=== PATIENT | female | born 1980 | race Caucasian/White ===

== ENCOUNTER 2024-10-04 15:11 | Outpatient (RCR) | payer BC, SELFPAY | END 2025-02-01 23:59 | disposition home or self-care (01) | PROVIDERS: Visit Provider Registered Nurse | DX: R42 Dizziness and giddiness (principal); Z51.89 Encounter for other specified aftercare | CPT/HCPCS: 97112; 97161 ==

== ENCOUNTER 2024-10-12 07:30 | Outpatient (CLI) | payer BC, SELFPAY | END 2024-10-12 07:31 | disposition home or self-care (01) | LOC: NFLDREF 10-15 22:24 | PROVIDERS: PCP Registered Nurse; Referring Provider Registered Nurse; Visit Provider Registered Nurse | DX: R73.01 Impaired fasting glucose (principal); Z13.6 Encounter for screening for cardiovascular disorders; Z13.9 Encounter for screening, unspecified | CPT/HCPCS: 80048; 80061 ==

== ENCOUNTER 2024-12-24 13:02 | Outpatient (CLI) | payer BC, SELFPAY | END 2024-12-24 13:03 | disposition home or self-care (01) | PROVIDERS: PCP Registered Nurse; Visit Provider Registered Nurse | DX: M79.604 Pain in right leg (principal); M79.605 Pain in left leg; M79.89 Other specified soft tissue disorders | CPT/HCPCS: 80048; 82550; 85379 ==

== ENCOUNTER 2025-01-14 10:03 | Outpatient (CLI) | payer BC, SELFPAY ==
--- NOTE | 2025-01-14 10:15 | CRLHL7_ITS ---
For Patients: As a result of the Century Cures Act, medical imaging exams and procedure reports are released immediately into your electronic medical record. You may view this report before your referring provider. If you have questions, please contact your health care provider. INDICATION: BILATERAL SCREENING MAMMOGRAM, ASYMPTOMATIC 44 Y/O FEMALE COMPARISON: NONE TECHNIQUE: Digital mammogram in CC and MLO projections including computer-aided detection (CAD) and tomosynthesis. BREAST COMPOSITION: There are scattered areas of fibroglandular density. FINDINGS: No suspicious findings. ASSESSMENT: BI-RADS 1 Negative RECOMMENDATION: Annual screening mammogram. A lay language report of this examination will be provided to the patient. Dictated by: Gregg Tucker MD @ 01/14/2025 10:41:13 (Electronically Signed)
== END 2025-01-14 10:04 | disposition home or self-care (01) ==
LOC: MAMMO 10:04
PROVIDERS: PCP Registered Nurse; Visit Provider Registered Nurse
DX: Z12.31 Encounter for screening mammogram for malignant neoplasm of breast (principal)
CPT/HCPCS: 77063; 77067

== ENCOUNTER 2025-02-14 15:23 | Outpatient (CLI) | payer BC, SELFPAY | END 2025-02-14 15:24 | disposition home or self-care (01) | LOC: NFLDREF 02-18 13:34 | PROVIDERS: PCP Nurse Practitioner Family; Referring Provider Nurse Practitioner Family | DX: R19.7 Diarrhea, unspecified (principal) | CPT/HCPCS: 87177; 87209; 87507 ==

== ENCOUNTER 2025-05-07 01:20 | Emergency (ER) | payer BC, SELFPAY ==
[2025-05-07 01:22] VITALS: BP 149/92; PULSE 128; RESP 18; TEMP 35.8; O2SAT 97; BMI 38.0
--- OUTSIDE RECORDS SUMMARY | 2025-05-07 01:23 | XMS_ITS | Data Portability ---
Author Organization [facility], [facility] Address [address] [place] [address] Care Team Providers Care Clinical Practitioner Name Role Phone KELI ELIZONDO Primary Care Provider Assessment No assessment recorded. Plan of Treatment Reminders Order Date Submit Date Provider Last Modified By Organization Details Last Modified Time Details Appointments None recorded. Lab None recorded. Referral None recorded. Procedures None recorded. Surgeries None recorded. Imaging barium swallow study 022 022 [email or web address] Not available 14:22:50 Medication Orders None recorded. Patient TargetsNo targets recorded. Patient InstructionsNo instructions recorded. Reason for Referral None Reported. Procedures Surgical History Date Name Laterality Status Provider Name and Address Organization Details Recorded Time 08/29/19 Fiberoptic Laryngoscopy (83724) completed Elle STEIN [facility] 08/29/2021 14:11:26 Imaging Results None recorded. Procedure Notes None recorded. Medical Equipment None Reported. Allergies Allergen ID Allergen Name Allergen Category Reaction Reaction Severity Criticality Documentation Date Start Date Code Code System Note Provider Name and Address Organization Details Recorded Time 10441 lamotrigi ne medicatio n Not available Not available Not available 08/29/2021 87023 RxNorm Loni hawkins [facility] 14:03:25 Medications Name Sig Start Date Stop Date Status Note LastModified by Organization Details LastModified Time cyclobenzapri ne 10 mg tablet TAKE 1 TABLET BY MOUTH EVERY EVENING NEEDED FOR BACK PAIN active Not Available Not Available No t Available prednisone 10 mg tablet active Not Available Not Available No t Available Carafate 100 mg/mL oral suspension active Not Available Not Available N ot Available metoprolol succinate ER 50 mg tablet,extend ed release 24 hr TAKE 1 TABLET BY MOUTH EVERY DAY active Not Available Not Available No t Available clonazepam 0.5 mg tablet TAKE 1 TABLET BY MOUTH DAILY AND ONE TABLET ONCE A DAY NEEDED active Not Available Not Available No t Available cyanocobalami n (vit B-12) 1,000 mcg tablet TAKE 1 TABLET BY MOUTH 3 TIMES A WEEK active Not Available Not Available No t Available modafinil 200 mg tablet TAKE 1 TABLET BY MOUTH TWICE DAILY active Not Available Not Available No t Available benzonatate 100 mg capsule TAKE 1 CAPSULE BY MOUTH THREE TIMES DAILY NEEDED FOR COUGH active Not Available Not Available No t Available cephalexin 500 mg capsule TAKE 1 CAPSULE BY MOUTH EVERY 12 HOURS WITH MEALS FOR 7 DAYS active Not Available Not Available No t Available bupropion HCl 75 mg tablet TAKE 1 TABLET BY MOUTH DAILY active Not Available Not Available No t Available omeprazole 20 mg capsule,delay ed release active Not Available Not Available N ot Available norethindrone acetate 1 mg-ethinyl estradiol 20 mcg tablet TAKE 1 TABLET BY MOUTH DAILY active Not Available Not Available No t Available escitalopram 10 mg tablet TAKE 1 AND 1/2 TABLETS BY MOUTH EVERY MORNING active Not Available Not Available No t Available aripiprazole 5 mg tablet TAKE 1 TABLET BY MOUTH DAILY active Not Available Not Available No t Available bupropion HCl XL 300 mg 24 hr tablet, extended release TAKE 1 TABLET BY MOUTH DAILY active Not Available Not Available No t Available bupropion HCl XL 150 mg 24 hr tablet, extended release TAKE 1 TABLET BY MOUTH EVERY MORNING active Not Available Not Available No t Available dalfampridine ER 10 mg tablet,extend ed release,12 hr TAKE 1 TABLET BY MOUTH TWICE DAILY. START ONCE DAILY FOR A WHILE AND INCREASE TO TWICE DAILY TOLERATED active Not Available Not Available No t Available Trintellix 5 mg tablet TAKE 1 TABLET BY MOUTH DAILY active Not Available Not Available No t Available Trintellix 10 mg tablet TAKE 1 TABLET BY MOUTH DAILY active Not Available Not Available No t Available Vitals Date Recorded Body height Body mass index (BMI) Body weight Provider Name and Address Organization Details Last Updated DateTime 08/29/2021 160.02 cm 39 kg/m2 39506.32 g Loni collins [facility] 08/29/2021 13:37:00 Social History None recorded. Functional Status None recorded. Mental Status None recorded. Family History Nothing Reported. Medical History Condition Response Allergies/Hayfever N Acid reflux (GERD) Y Heart Conditions N Liver Disease/Jaundice N Emphysema N Migraines N Thyroid Problems N Glaucoma N Depression N HIV/Sexually Transmitted Disease N Anemia N Heart Attack ([place]) N N Diabetes N Bleeding Disorder N Hearing Loss N Arthritis N Cancer N Stroke N Asthma N Sleep Disorder N Hypertension N Speech Delay N Kidney Disease N Gynecological HistoryNo gynecological history recorded. Obstetrics History GPAL:G 0 P 0 0 0 0 Past Encounters Encounter ID Performer Location Encounter Start Date Encounter Closed Date Diagnosis/Indication Diagnosis SNOMED-CT Code Diagnosis ICD10 Code Diagnosis IMO Codes Diagnosis Note [id number] Lissette Lee MD Main Office [address] [facility],[address] [place] [address] 08/29/2021 13:34:56 08/29/2021 14:23:14 Anxiety 74257589 F41.9 high anxiety pt-cont current regimen Dysphagia 76162253 R13.1 3 - Reassured there is no evidence of obstructin g masses or lesions in the upper aerodigest fortunato tract - Recommend further evaluation of cervical dysphagia with a barium swallow study. -Discussed the possibilit y of a GI consult for further evaluation of the patient s dysphagia - Pt. will F/U with me after the study to discuss results. Laryngopha ryngeal reflux 249817484 K21.9 -History provided today and endoscopic exam findings are consistent with reflux. Patient reassured no concerning pathology on todays endoscopic exam-revie wed lifestyle and dietary changes-Co nt omeprazole -FU after barium Health Concerns Section Related Observation LastModified by Organization Detai ls LastModified Time None Recorded Concern Status LastModified by Organization Details LastModified Time None Recorded Advance Directives Directive None Recorded Payers Insurance Date Sequence Insurance Name Policy Number Policy [place] Covered Member ID Murdock Member ID Guarantor Name 08/29/2021 1 MEDICAID-[place] - [facility] PRIOR TO 10/05/2022 - [facility] (MEDICAID) Renetta Marcum [id number] Renetta Marcum Notes Date Note Type Note Provider Name a nd Address Organization Details Recorded Time 2 text/html ROS as noted in the HPI 41 yo female presents for dysphagia x 6 months.Admits to feeling foods are getting caught in her throatStates she is able to take her finger and pull foods out to get it unstuck.Admits to globus sensation for the last 24 hours - feels there is osmething like a marble in her throat.Urgent care sent her here for eval. Negative strep at .States she is having trouble with bread, apples - all kinds of solid foods. States drinking is uncomforable but doens't get stuck.Admits to chronic throat clearing.+Odynophag ia.Denies hx of coughing.denies hemoptysis, unexplained weight loss.History of reflux - on omeprazole twice a dayHistory of Hiatal herniaAdmits to seasonal allergiesNever smoker. Lissette Lee MD [address] [place] [address] [address], [place], [address], [facility] 08/29/2021 15:32:08 OBGyn Episode No OBEpisode recorded.
--- OUTSIDE RECORDS SUMMARY | 2025-05-07 01:23 | XMS_ITS | Clinical Summary ---
Author Organization [facility] [employer] [facility] Address [address] [address] Phone Care Team Providers Care Apprentice Cosmetologist Name Role Phone Unavailable Primary Care Provider Unavailabl e Allergies Active Allergy Reactions Criticality Noted Date Comments Lamotrigine RASH Medium 01/09/2025 Medications albuterol HFA (Proair HFA, Ventolin HFA) 108 (90 Base) MCG/ACT inhalation aerosol INHALE 2 PUFFS EVERY 4 TO 6 HOURS NEEDED FOR SHORTNESS OF BREATH OR FOR WHEEZE 5 Active ocrelizumab (Ocrevus) 300 MG/10ML Solution Inject into the vein. Active cholecalciferol (Delta D3) 400 UNIT tablet Take 250 mcg by mouth one time a day. Active fluticasone propionate (Flonase) 50 MCG/ACT nasal spray Instill 2 Sprays nasally. 4 Active metFORMIN-XR (Glucophage-XR) 500 MG 24 hour tablet TAKE 1 TABLET BY MOUTH EVERFY EVENING FOR 7 DAYS, THEN INCREASE TO 2 TABS BY MOUTH EVERY EVENING 5 Active Active Problems No known active problems Social History Tobacco Use Types Packs/Day Years Used Date Smoking Tobacco: Never Smokeless Tobacco: Never Tobacco Cessation:Counseling Given: Not Answered Comments Unknown Sex and Gender Information Value Date Recorded Sex Assigned at Not on file Legal Sex Female 8:12 AM CDT Gender Identity Not on file Sexual Orientation Not on file Last Filed Vital Signs Vital Sign Reading Time Taken Comments Blood Pressure 129/83 01/09/2025 8:25 AM CDT Pulse 98 01/09/2025 8:25 AM CDT Temperature 36.5 C (97.7 F) 01/09/2025 8:25 AM CDT Respiratory Rate 14 01/09/2025 8:25 AM CDT Oxygen Saturation 98% 01/09/2025 8:25 AM CDT Inhaled Oxygen Concentration - - Weight - - Height - - Body Mass Index - - Plan of Treatment Health Maintenance Due Date Last Done Comments Cervical Cancer Screening 1981 Last pap w/ HPV Testing 1981 Last pap w/o HPV Testing 1981 Hepatitis B Vaccine (Standin g Order) (1 of 3 - 19+ 3-dose series) 02/26/2000 PERTUSSIS (Standing Order) 02/26/2000 TETANUS (Standing Order) 02/26/2000 MAMMO,SCREEN 09/06/2023 09/06/2022 COVID-19 Vaccine ( - 2024-2 6 season) 2025 Influenza Vaccine Seasonal (Standing Order) (#1) 2025 HPV Vaccine (Standing Order) Aged Out No longer eligible based on patient's age to complete this topic Pneumococcal/PCV20 Vaccine: Pediatrics (2-5 yrs) and At-Risk Patients (6-49 yrs) (Standing Order) Aged Out No longer eligible b ased on patient's age to complete this topic Insurance [address] [place] [id number] [employer] [address] [place] [address]
--- OUTSIDE RECORDS SUMMARY | 2025-05-07 01:23 | XMS_ITS | Clinical Summary ---
Author Organization [facility] Address [address] [place] [address] Care Team Providers Care Rehab Director Occupational Therapist Name Role Phone Unavailable Primary Care Provider Unavailabl e Allergies Active Allergy Reactions Criticality Noted Date Comments Lamotrigine Rash Medium 10/20/2023 Lamotrigine Rash Low 11/27/2024 Medications amphetamine-dex troamphetamine (ADDERALL XR) 15 MG 24 hr capsule Take 15 mg by mouth daily Active UNABLE TO FIND Inject 1 Dose into the vein every 6 months MEDICATION NAME: Ocrevus Active medroxyPROGESTE Kirt (PROVERA) 5 MG tabletIndicatio ns:Abnormal uterine bleeding (AUB) Take 1 tablet (5 mg) by mouth daily as needed (take for 5 days if heavy menstrual bleeding) 15 tablet 1 4 Active fluticasone (FLONASE) 50 MCG/ACT nasal sprayIndication s:Acute sinusitis with symptoms > 10 days [place] 2 sprays into both nostrils daily. 16 g 5 Active Active Problems No known active problems Social History Tobacco Use Types Packs/Day Years Used Date Smoking Tobacco: Never Smokeless Tobacco: Never Tobacco Cessation:Counseling Given: Not Answered Alcohol Use Standard Drinks/Week Comments Yes 0 (1 standard drink = 0.6 oz pur e alcohol) rarely Adolescent Education Answer Date Record ed Getting School Help Needed Not on file 10/21 Comments No Sex and Gender Information Value Date Recorded Sex Assigned at Not on file Legal Sex Female 12:46 PM CDT Gender Identity Not on file Sexual Orientation Not on file Last Filed Vital Signs Vital Sign Reading Time Taken Comments Blood Pressure 126/85 11/27/2024 7:20 PM CDT Pulse 96 11/27/2024 7:12 PM CDT Temperature 36.8 C (98.2 F) 11/27/2024 7:12 PM CDT Respiratory Rate 20 11/27/2024 7:12 PM CDT Oxygen Saturation 98% 11/27/2024 7:12 PM CDT Inhaled Oxygen Concentration - - Weight 98.4 kg (217 lb) 11/27/2024 7:12 PM CDT Height 160 cm (5' 3) 11/27/2024 7:12 PM CDT Body Mass Index 38.44 11/27/2024 7:12 PM CDT Plan of Treatment Health Maintenance Due Date Last Done Comments ADVANCE CARE PLANNING 1981 ANNUAL REVIEW OF HM ORDERS 1981 DIABETES SCREENING 1981 HIV SCREENING 02/26/1996 DTAP/TDAP/TD VACCINE (8 - Td or Tdap) 01/23/2020 01/22/2010, 03/15/1997, 10/30/1990, Additional history exists LIPID 2021 YEARLY PREVENTIVE VISIT 08/06/2022 08/06/19, 08/03/2020, 08/02/2019 PHQ-2 (once per calendar year) 2024 MAMMO SCREENING 09/06/2024 09/06/2022, 09/06/2022 COVID-19 VACCINE ( - season) 2025 09/15/2020, 08/17/2020 INFLUENZA VACCINE (#1) 2025 , 08/06/2021, 06/02/2021, Additional history exists PAP 10/22/2026 10/23/2023 ZOSTER VACCINE (1 of 2) 2031 HEPATITIS B VACCINE Completed 11/24/1996, 08/18/1996, 07/14/1996 MENINGITIS VACCINE Completed 02/06/2000 HEPATITIS C SCREENING Completed 08/20/2022, 021 HPV VACCINE (No Doses Required) Completed PNEUMOCOCCAL VACCINE: PEDIATRICS (0 to 5 YEARS) AND AT-RISK PATIENTS (6 to 49 YEARS) Aged Out No longer eligible based on patient's age to complete this topic Procedures Procedure Name Priority Date/Time Associated Diagnosis Comments GYNECOLOGIC CYTOLOGY Routine 10/23/2023 9:54 AM CDT Abnormal uterine bleeding (AUB) Menorrhagia Cervical cancer screening from Last 3 Months or Most Recently Relevant to Health Maintenance Results * Gynecologic Cytology (PAP) (10/23/2023 9:54 AM CDT) Interpretation Negative for Intraepithelial Lesion or Malignancy (NILM) 10/27/2023 1:47 PM CDT [facility] at 1347 CDT Comment Papanicolaou Test Limitations: Cervical cytology is a screening test with limited sensitivity, and regular screening is critical for cancer prevention. Pap tests are primarily effective for the diagnosis/prevent ion of squamous cell carcinoma, not adenocarcinoma or other cancers. 10/27/2023 1:47 PM CDT [facility] Specimen Adequacy Satisfactory for evaluation, endocervical/reyna sformation zone component present 10/27/2023 1:47 PM CDT [facility] LMP/Menopause Date 09/02/2023 10/27/2023 1:47 PM CDT [facility] Per[facility] Labs The technical component of this testing was completed at [facility] 10/27/2023 1:47 PM CDT [facility] Brushing ENDOCERVICAL STRUCTURE / Unknown 10/23/2023 9:54 AM CDT 10/24/2023 9:34 AM CDT us Basilia FRANCISCO - HORACIO AP Final Result [facility] [address] [facility] [address], [address] [address], [facility] [address] [facility] [address], [address] [place] [phone], [facility] from Last 3 Months or Most Recently Relevant to Health Maintenance Insurance [address] [place] [id number] [employer] OUT OF STATE [address] [place] [address] [employer] OUT [place]
--- OUTSIDE RECORDS SUMMARY | 2025-05-07 01:23 | XMS_ITS | Clinical Summary ---
Author Organization [facility] Address [address] [place] [address] Care Team Providers Care Sales Representative Publications Name Role Phone Yamileth Luo APRN, COLOR DEPOSITING MACHINE TENDER Unavailable [phone] Ann-Marie Hawkins MD Unavailable Unknown, Md VENCES Primary Care Provider UnavailMaría Candelaria MD Unavailable [phone] Allergies Active Allergy Reactions Criticality Noted Date Comments Adhesive Hives,Unknown 06/11/2016 Adhesive Tape-Silicones Rash High 10/09/2010 Other reaction(s): Other (See Comments) Other reaction(s): skin rash Other reaction(s): skin rash Lamotrigine Rash 03/15/2022 Latex Low 06/08/2024 when using condoms Nuts (Jerry) Anaphylaxis High 10/28/2023 Peanut Medium 12/04/2022 Other Reaction(s): *Unknown - Childhood Rxn Tree Nut Anaphylaxis High 01/16/2023 Tree Nuts Difficulty breathing,Swelling, lips/tongue 03/15/2022 Medications ocrelizumab (OCREVUS IV) by Intravenous route. Active fluticasone (FLONASE) 50 mcg/actuation nasal spray Instill 2 sprays into EACH nare ONCE DAILY. 16 g 1 4 Active amoxicillin-pot clavulanate (AUGMENTIN) 875-125 mg oral tablet 5 Active ACCU-CHEK GUIDE TEST STRIPS Strip testing strips CHECK BLOOD SUGAR IN THE MORNING 4 TIMES PER WEEK, AND NEEDED 5 Active ACCU-CHEK GUIDE ME GLUCOSE MTR meter CHECK BLOOD SUGAR IN THE MORNING 4 TIMES PER WEEK, AND NEEDED 5 Active ACCU-CHEK SOFTCLIX LANCETS CHECK BLOOD SUGAR IN THE MORNING 4 TIMES PER WEEK, AND NEEDED 5 Active metFORMIN ER (GLUCOPHAGE XR) 500 mg oral extended release tablet 24 HR TAKE 1 TABLET BY MOUTH EVERFY EVENING FOR 7 DAYS, THEN INCREASE TO 2 TABS BY MOUTH EVERY EVENING 5 Active cholecalciferol (VITAMIN D3) 400 unit (10 mcg) oral Tab tablet Take 25 tablets (250 mcg) by mouth once daily. Active nortriptyline (PAMELOR) 10 mg oral capsule Take 1 capsule qhs x2 weeks, then increase by one capsule each week until reaching 3 capsules at bedtime. 90 capsule 3 5 Active Miscellaneous Medical Supply Acupuncture Dx: G35, G81.91 1 each 11 5 Active Active Problems Problem Noted Date Diagnosed Date Anxiety 06/14/2024 Asthma 06/14/2024 Severe obstructive sleep apnea 12/13/2022 Multiple sclerosis 03/15/2022 Acute thoracic back pain 01/04/2022 Overview (08/05/2022): Last Assessment & Plan: ER notes reviewed Thankfully, she's feeling better. Advised ongoing prn use of NSAID, deep breathing, warm compresses. If doesn't resolve, then could consider chest xray/rib series given location of pain, though no injury/trauma/cough or breathing changes. Anemia 08/07/2021 Overview (08/05/2022): Last Assessment & Plan: Please continue current medications as prescribed, and follow-up as scheduled. Please call if other concerns arise in the meantime. Due for labs Incomplete bladder emptying 06/22/2021 Overview (08/05/2022): Last Assessment & Plan: Urine dip positive for trace protein, trace blood, 2+ LE's. Urine sent for culture. Will contact patient with results and management plan as appropriate. Follow-up if no improvement or any worsening symptoms. Post-COVID syndrome 06/22/2021 Overview (06/11/2024): 06/30/21 - Positive COVID-19 test at [facility] Infection due to severe acut e respiratory syndrome coronavirus 2 (SARS-CoV-2) 06/02/2021 Fever 06/01/2021 Abdominal bloating 04/09/2021 Overview (08/05/2022): Last Assessment & Plan: Renetta reports severe abdominal bloating as part of her GI symptom complex. We discussed possibility of SIBO Lactulose breath test explained and she would like to proceed Await result History of colonic polyps 04/09/2021 Overview (08/05/2022): Last Assessment & Plan: H/o colon polyps Colonoscopy 05/18/21- 1 cecal polyp, sigmoid diverticulosis. Polyp- Tubular adenoma. Random colon biopsies- All normal. Repeat surveillance colonoscopy due 05/2026 LFTs abnormal 04/09/2021 Overview (08/05/2022): Last Assessment & Plan: Renetta has had mildly abnormal LFTs Suspect this may be due to fatty liver We will proceed with an abdominal ultrasound study Plan on repeating LFTs next visit- if remain elevated- May also need additional serologic evaluation to rule out other causes of liver disease Increased glucose level 04/05/2021 Cough 04/03/2021 Overview (08/05/2022): Last Assessment & Plan: COVID-19 negative. Lungs CTA throughout. No cough noted during exam. Patient appears well. Suspect symptoms related to GERD rather than respiratory infection. Increase omeprazole to 20 mg twice daily before meals. Reviewed GERD home care measures. Referred to Gastroenterology for further evaluation. Update Colonoscopy and EGD. Follow up in 3 months for re-evaluation or sooner for any concerns such as trouble swallowing, blood in stool, black or tarry stool or unexplained weight loss. Back pain with radiculopathy 05/02/2020 Overview (08/05/2022): Last Assessment & Plan: See HPI L sciatica and hx LBP and radiculopathy ice & heat to affected area. NSAIDs as directed. recommend walking and gentle stretching as tolerated. ergonomically correct posture and work station. follow- up if no improvement in x2 wks. Consider PT Flexeril for nighttime discomfort PRN Arthritis 08/02/2019 Overview (08/05/2022): Last Assessment & Plan: Pending labs Emphasis on dietary changes (mindful of potential for inflammation reduction with reducing refined sugar / excess carbs) Recommend walking / exercise daily .. Avoid sedentary lifestyle Vitamin D deficiency 12/15/2018 Rosacea 03/03/2018 Fallopian tube disorder 10/28/2016 Tachycardia 05/16/2016 Overview (08/05/2022): Last Assessment & Plan: Notes ongoing issues of tachycardia and LH even at rest and with only minimal/modest activity Recent labs unrevealing Will repeat an echo and a one week Zio monitor Might consider [place] [facility] [place] results and clinical course Benign neoplasm of cecum 02/15/2016 Overview (08/05/2022): Last Assessment & Plan: H/o cecal polyp- tubular adenoma- on colonoscopy performed 05/18/21- Next colo due 05/2026- Reviewed with her today Discussed importance of continued CRC screening- She will follow-up with GI in [place] Hiatal hernia 02/15/2016 Overview (08/05/2022): Last Assessment & Plan: Continue with GERD diet and PPI Hiatal hernia with GERD and esophagitis 01/23/20 16 Overview (08/05/2022): 02/15/16 - Colonoscopy: Benign polyp, normal colon, hiatal hernia; repeat in 5 years. EGD: Moderate distal esophagitis, mild gastritis; both biopsied. Last Assessment & Plan: Long-standing h/o GERD She is on omeprazole 20 mg BID Also uses carafate on prn basis and this has been helpful- Refills provided today GERD symptoms well controlled as of late EGD 05/18/21- Normal other than small HH. Biopsies of esophagus, stomach and duodenum- Normal Plan -Continue omeprazole 20 mg BID -1. Take PPI medication 30 minutes before breakfast and 30 minutes before dinner or at HS 2. Antireflux diet: avoid tomatoes, citrus fruits, carbonated or caffeinated beverages, chocolate, peppermints, fatty foods. 3. Elevate head of bed 6 inches on a brick or telephone book 4. Do not eat within 4 hours of bedtime -encouraged continued efforts at weight loss -she will follow-up with GI once in [place] Steatosis of liver 01/23/2016 Overview (08/05/2022): Last Assessment & Plan: H/o fatty liver Noted on her prior imaging studies LFTs mildly elevated in past but normalized on last labs performed Jul 2021 She has lost 10 pounds this summer Plan -Encouraged continued efforts at weight loss -Recommended continued periodic monitoring of LFTs- She will establish with new GI practice in [place] Functional diarrhea 12/20/2015 Overview (08/05/2022): Last Assessment & Plan: H/o functional diarrhea She reports she took home food sensitivity test and tested + for wheat / gluten sensitivity Has started gluten-free diet Diarrhea has markedly improved Now having more consistently formed stools Plan -She will continue gluten- free diet. We discussed celiac disease vs gluten sensitivity / intolerance today -She is encouraged to include healthy sources fiber in diet -stay well hydrated -encouraged to follow-up with GI in [place] Morbid obesity with body mass index of 40.0-44.9 in adult 07/03/2015 Overview (08/05/2022): Last Assessment & Plan: Please enjoy regular cardiovascular exercise. Walking program encouraged. Recommend food diary - write down everything eaten daily - review weekly to indicate patterns of healthy and unhealthy eating. Eat when you are hungry. Recommend increasing intake of water, fiber - these add bulk, and give the sensation of fullness. Keep fresh fruits or dried fruits handy for snacking. Encourage more lean protein in diet - this takes longer to digest, and will give the sensation of fullness longer. Limit refined sugar and carbohydrates in the diet. Working with a psych sports recruiter as well Family history of ischemic h eart disease and other diseases of the circulatory system 05/19/2015 Allergy to other foods 10/09/2010 Depressive disorder 01/13/2007 Overview (08/05/2022): Regular visits and Rx mgmt by MH specialist. Seeing [id number] of late (2020) Last Assessment & Plan: Continue to follow-up with MH provider no harmful thoughts. recommend therapy as directed. emphasis on self care, including daily exercise, healthy dietary choices, healthy sleep habits. continue all medication as directed. return as planned, and sooner if any concerns. Please continue current medications as prescribed, and follow-up as scheduled. Please call if other concerns arise in the meantime. Emphasis on exercise most days for mental health Immunizations Immunization Administration Dates Next Due HIB 11/24/1996,08/18/1996,07/14/1996 Hep B Immune By Titer 11/24/1996,08/18/1996,02/1997 Influenza recombinant (FluBl ok Quadrivalent PF) 04/03/2022,06/02/2021 Influenza split virus (Fluzo ne Quadrivalent PF) 04/03/2022,06/02/2021 MMR 03/15/1997,02/02/1992,06/19/1982 Meningococcal MCV4P (Menactra) 02/06/2000 Pfizer 12+ Yrs Monovalent CO VID Vaccine (purple cap) 09/15/2020,08/17/2020 Tdap 01/22/2010 Tetanus Immune By Titer 03/15/1997,10/30/1990 Varicella 11/15/2022,10/18/2022 Family History Medical History Relation Comments Breast Cancer Maternal Grandmother Relation Status Comments Maternal Grandmother Social History Tobacco Use Types Packs/Day Years Used Date Smoking Tobacco: Never Smokeless Tobacco: Never Tobacco Cessation:Counseling Given: No Alcohol Use Standard Drinks/Week Comments Yes 0 (1 standard drink = 0.6 oz pur e alcohol) Maybe 1/2 drinks a month Comments Unknown Sex and Gender Information Value Date Recorded Sex Assigned at Not on file Legal Sex Female 10:46 AM CDT Gender Identity Not on file Sexual Orientation Not on file Last Filed Vital Signs Vital Sign Reading Time Taken Comments Blood Pressure 130/71 01/17/2025 1:36 PM CDT Pulse 100 01/17/2025 1:36 PM CDT Temperature 36.8 C (98.3 F) 01/17/2025 1:36 PM CDT Respiratory Rate 18 01/17/2025 1:36 PM CDT Oxygen Saturation 97% 01/17/2025 1:36 PM CDT Inhaled Oxygen Concentration - - Weight 99.3 kg (219 lb) 12/10/2024 3:01 PM CDT Height 160 cm (5' 3) 12/10/2024 3:01 PM CDT Body Mass Index 38.79 12/10/2024 3:01 PM CDT Plan of Treatment Health Maintenance Due Date Last Done Comments Diabetes Screening 1981 Lipid Screening 1981 Pap Smear 1981 Anxiety Follow-Up (NADIYA-7) 1982 Depression Follow-Up (PHQ-9) 1982 Pneumococcal Vaccine (1 of 2 - PCV) 02/26/2000 HPV Vaccine (1 - 3-dose SCDM series) 02/26/2008 Adult Tetanus Booster 01/23/2020 01/22/2010 , 03/15/1997, 10/30/1990 Mammogram Screening 09/06/2024 09/06/2022 COVID-19 Vaccine ( - season) 2025 09/15/2020, 08/17/2020 Influenza Vaccine (#1) 2025 , 04/03/2022, 06/02/2021, Additional history exists RSV Vaccines (1 - 1-dose 75+ series) 02/26/2056 Hepatitis C Screening Completed 08/20/2022 Meningococcal B Vaccine Aged Out No l onger eligible based on patient's age to complete this topic Procedures Procedure Name Priority Date/Time Associated Diagnosis Comments MAMMO DANIE SCREENING BI Routine 09/06/2022 12:02 PM WIRE INSULATOR Screening mammogram for breast cancer HCV ANTIBODY ([facility]) Routine 08/20/2022 8:20 AM WIRE INSULATOR Drug therapy from Last 3 Months or Most Recently Relevant to Health Maintenance Results * MAMMO DANIE SCREENING BI (09/06/2022 12:02 PM WIRE INSULATOR) Anatomical Region Laterality Modality Breast Bilateral Mammography Impressions 09/06/2022 12:24 PM WIRE INSULATOR : There is no mammographic evidence of malignancy. RECOMMENDATION: - A screening mammogram in 1 year. BI-RADS: Overall: 2 - Benign The patient will be notified of the results. REPORT SIGNED BY Pete Prather MD Narrative 09/06/2022 12:24 PM WIRE INSULATOR EXAM: MAMMO DANIE SCREENING BI REASON FOR EXAM: Routine screening mammogram COMPARISON: No comparisons were made when reading this study. TECHNIQUE: Craniocaudal and oblique digital views were obtained. Tomosynthesis technique was also utilized. Current study was evaluated with Computer Aided Detection (CAD) system. FINDINGS: The breasts have scattered areas of fibroglandular density. There are benign appearing masses present in both breasts. No significant masses, calcifications, or other findings are seen. This is a baseline mammogram. Yesy El DO MAMMO ORDERABLE Final Result * HCV ANTIBODY ([facility]) (08/20/2022 8:20 AM WIRE INSULATOR) Hepatitis C Virus Antibody ([facility]) Non Reactive Non Reactive [facility] 1 Comment: HCV antibody alone does not differentiate between previously resolved infection and active infection. Equivocal and Reactive HCV antibody results should be followed up with an HCV RNA test to support the diagnosis of active HCV infection. Blood 08/20/2022 8:20 AM WIRE INSULATOR 08/19/2022 11:00 PM WIRE INSULATOR Narrative [facility] 1 - 08/21/2022 10:06 PM WIRE INSULATOR Performed at: - [facility] [address] [id number] Assistant Executive Housekeeper: Naresh Reyna MD, Phone: [phone] us Christine Mejia PA-C [facility] ORDERABLES Final Result [facility] 1 from Last 3 Months or Most Recently Relevant to Health Maintenance Insurance [employer] [place] [address] [facility] [employer] Care Teams Sales Representative Publications Relationship Specialty Start Date End Date Unknown, MD Akhil [address] [address] PCP - General 02/13/24 Yamileth Luo, PRODUCE LABORER, COLOR DEPOSITING MACHINE TENDER [address] [place] [id number] Neurology 02/12/24 Ann-Marie Hawkins MD [address] [address] Neurology 02/12/24 María Westfall MD [address] [address] Neurology 12/02/24
--- NOTE | 2025-05-07 01:39 | ED.GENADULT ---
HPI - General Adult General Chief complaint: Nausea/Vomiting Stated complaint: diarrhea, nausea Time Seen by Provider: 05/07/25 01:24 Source: patient Mode of arrival: ambulatory Limitations: no limitations History of Present Illness HPI narrative: 45-year-old female presents to the emergency department with 5 hours of loose stools and nausea, 3-1/2 hours of vomiting. No hematemesis, no bloody stools. No history of abdominal surgeries. No fever. No trauma or injury. Has not tried any kriz-bof-avxslor treatments to help with symptoms. 8 at a restaurant last night, also fall mildly ill, but not as severe of symptoms. No obvious illness exposures or pertinent travel. No abdominal pain or other systemic symptoms noted today. Past medical history notable for an loss, type 2 diabetes. The medications reviewed. The only difference is she is also taking nortriptyline 10 mg at bedtime which is not reflected in her list, started a few months ago by her neurologist. Allergies reviewed and noted. Nonsmoker. ROS is notable for the GI symptoms as above, otherwise denies times 12 systems. Related Data Home Medications ?Medication ?Instructions ?Recorded ?Confirmed ocrelizumab 30 mg/mL intravenous 600 mg IV [id number] 06/08/24 02/24/25 solution (Ocrevus) fluticasone propionate 50 1 spray intranasal QDAY 09/24/24 02/24/25 mcg/actuation nasal spray,suspension (Flonase Allergy Relief) Previous Rx's ?Medication ?Instructions ?Recorded albuterol sulfate 90 mcg/actuation 2 puff inhalation Q4-6H PRN 08/25/24 aerosol inhaler shortness of breath or wheezing #8.5 grams blood-glucose meter (Accu-Chek #1 ea 10/14/24 Guide Glucose Meter) lancets (Accu-Chek Softclix #100 ea 10/20/24 Lancets) blood sugar diagnostic (Accu-Chek #100 ea 11/08/24 Guide test strips) metformin 500 mg tablet,extended 500 mg PO QPM 90 days #90 tabs 02/14/25 release 24 hr peg 3350-electrolytes 236 4,000 ml PO DIRECTED PRN 04/25/25 gram-22.74 gram-6.74 gram-5.86 colonoscopy prep #1 mL gram solution (Zari) Allergies Allergy/AdvReac Type Severity Reaction Status Date / Time adhesive tape Allergy Intermediate Rash Verified 05/07/25 03:24 lamotrigine Allergy Intermediate Rash Verified 05/07/25 03:24 pine nut Allergy Mild Anaphylaxis Verified 05/07/25 03:24 latex AdvReac Mild Verified 05/07/25 03:24 [facility] Medical History Hip pain ?M25.559 - Pain in unspecified hip (ICD-10) Type II diabetes mellitus ?E11.9 - Type 2 diabetes mellitus without complications (ICD-10) Surgical History History of colonoscopy with polypectomy ?Z98.890 - Other specified postprocedural states (ICD-10) ?Z86.0100 - Personal history of colon polyps, unspecified (ICD-10) History of hysteroscopy ?Z98.890 - Other specified postprocedural states (ICD-10) Family History Grandmother Breast cancer Mother High blood pressure Father High blood pressure Social History Narrative: Mental health therapist Education level: Masters Nonsmoker Rare alcohol use What is your current living situation?: I presently have a place to live Problems where you live: no known problems In the past 12 months, utilities in danger of being shut off: no In past 12 months, lack of transportation kept you from medical appts, meetings, work, or getting things needed for daily living: no In the past 12 mos, have been you worried that your food would run out before you had money to buy more?: never true In the past 12 mos, the food you bought just didn't last and you didn't have money to buy more?: never true Smoking Status: Never smoker Do you use any of these nicotine containing products: None Second hand tobacco smoke exposure: No How often do you have a drink containing alcohol: monthly or less How many standard drinks containing alcohol do you have on a typical day: 1 or 2 How often do you have six or more drinks on one occasion: Never AUDIT-C Alcohol total score: 1 Non-prescribed substance use: denies use How often does anyone, including family, friends and others, physically hurt you: never How often does anyone, including family, friends and others, insult or talk down to you: sometimes How often does anyone, including family, friends and others, threaten you with harm: never How often does anyone, including family, friends and others, scream or curse at you: never Health Related Social Needs: Other personal risk factors, not elsewhere classified (Z91.89) Exam Const: Vital Signs, click to edit/add: Vital Signs - 24 hr 05/07/25 01:22 05/07/25 01:52 05/07/25 03:21 Temperature 96.5 F L Pulse Rate [Left P ulse Oximeter] 128 H 112 H Respiratory Rate 18 18 18 Blood Pressure [Ri ght Upper Arm] 149/92 H 141/84 H Pulse Oximetry 97 96 Oxygen Delivery Me thod Room Air Room Air Documenting provider has reviewed patient's vital signs: yes Common normals: no apparent distress General appearance: cooperative and well kempt HENMT: Common normals: normocephalic Head and scalp: normocephalic Face and sinus: normal facial exam Eye: General eye: normal appearance of both eyes Neck & C-Spine: General: normal visual inspection Resp: Common normals: normal respiratory effort, no use of accessory muscles and clear to auscultation bilaterally Effort & inspection: able to speak in complete sentences Auscultation: clear to auscultation bilaterally Cardio: Common normals: regular rate, regular rhythm, S1 normal heart sound, S2 normal heart sound and no murmurs Rate: regular rate Rhythm: regular rhythm Heart sounds: S1 normal and S2 normal GI: Common normals: Normal to inspection, nondistended, normoactive bowel sounds present, soft to palpation, non-tender, no hepatosplenomegaly and no masses Palpation: soft and no hepatosplenomegaly Extremity: Common normals: normal to inspection and normal capillary refill Psych: Appearance: well kempt Attitude: engaged Activity/motor behavior: appropriate eye contact Insight: insight good Judgement: judgment good Skin: Common normals: no rashes or lesions noted General skin exam: no rashes or lesions noted Course Course ED Course: 45-year-old female with nausea vomiting and loose stools suspicious for gastroenteritis. There is no abdominal pain, fever that would suggest severe colitis, diverticulitis, severe infection, obstruction, pancreatitis, electrolyte abnormality. Has not really been a left time to really think that there would be dehydration. There is no hypotension but there is some mild tachycardia. We can consider IV fluids but I recommended that we start with 8 mg of Zofran, then 4 of Imodium and do an oral fluid challenge. If tachycardia improved and she is able to hold down liquids, can discharge with additional Zofran. No indications for stool testing. Await clinical response. Reevaluation(s) Reevaluation #1: Update: Patient tolerated Zofran and Imodium well. She has had 1 further loose stool shortly after the Imodium but none since. Has been observed now for an hour after meds and is drinking fluids well with no further vomiting, feels like she can go home. Counseled patient on management. Tachycardia has improved quite a bit. Still afebrile. Prescription for Zofran given through [facility], use discussed. Automatically take another dose in about 6-8 hours and then after that wait and see. Andrea diarrhea episodes once she gets home with 2 mg of Imodium went further bouts, but typically only 1 single dose in the ED as needed. Alarm symptoms reviewed that would warrant re-evaluation. Slowly advance diet, lots of fluids for today. Patient verbalizes understanding and agreement Vital Signs Vital signs: Initial Vital Signs Temperature 96.5 F L 05/07/25 01:22 Temperature Source Temporal Artery Scan 05/07/25 01:22 Pulse Rate 128 H 05/07/25 01:22 Pulse Rhythm Regular 05/07/25 01:22 Respiratory Rate 18 05/07/25 01:22 Blood Pressure 149/92 H 05/07/25 01:22 Blood Pressure Mean 111 H 05/07/25 01:22 Blood Pressure Position Sitting 05/07/25 01:22 Pulse Oximetry 97 05/07/25 01:22 Oxygen Delivery Method Room Air 05/07/25 01:22 Vital Signs Temperature 96.5 F L 05/07/25 01:22 Pulse Rate 128 H 05/07/25 01:22 Respiratory Rate 18 05/07/25 01:22 Blood Pressure 149/92 H 05/07/25 01:22 Pulse Oximetry 97 05/07/25 01:22 Oxygen Delivery Method Room Air 05/07/25 01:22 Temperature 96.5 F L 05/07/25 01:22 Pulse Rate 112 H 05/07/25 01:52 Respiratory Rate 18 05/07/25 03:21 Blood Pressure 141/84 H 05/07/25 01:52 Pulse Oximetry 96 05/07/25 01:52 Oxygen Delivery Method Room Air 05/07/25 01:52 Medications Administered Medications: Discontinued Medications Generic Name Dose Route Start Last Admin Trade Name Freq PRN Reason Stop Dose Admin Loperamide HCl 4 mg 05/07/25 01:38 05/07/25 02:11 Loperamide Hcl 2 Mg Capsule PO 4 mg ONCE PRN Administration Ondansetron HCl 8 mg 05/07/25 01:38 05/07/25 01:51 Ondansetron Odt 4 Mg Tab PO 05/07/25 01:39 8 mg ONCE ONE Administration Discharge Plan Discharge Clinical Impression: Gastroenteritis Patient Disposition: Home w/ Parent or Adult Condition: Improved Instructions: Gastroenteritis (DC) Additional Instructions: as we discussed, your symptoms are most likely caused by a virus. I am thankful that the medications seem to be helping. Drink lots of fluids for the next 48 hours, slowly advancing her diet as you start to feel better. Automatically take another dose of the anti nausea by 10:00 a.m. this morning. If you feel very nauseated again, you may take it as soon as 8:00 a.m.. After the morning dose, see how things go and continue using the medication up to every 8 hours if you continue to feel very nauseated. As far as the diarrhea, for most people the single dose in the emergency room of the Imodium is effective at stopping the diarrhea within a few hours. You may continue to use lbag-[id number] Imodium every few hours if you continue to have watery stools, but we do not recommend taking it further as a preventative. If you have bloody vomit or bloody stools, high fevers or persistent abdominal pain, you should return to the emergency department. Otherwise, symptoms do tend to improve in 2-3 days. Activity Level: No Restrictions Discharge Diet: Regular Prescriptions: No Action albuterol sulfate 90 mcg/actuation HFA aerosol inhaler 2 puff inhalation Q4-6H PRN (Reason: shortness of breath or wheezing) Qty: 8.5 0RF metformin 500 mg tablet extended release 24 hr 500 mg PO QPM 90 Days Qty: 90 1RF Ocrevus 30 mg/mL solution 600 mg IV [id number] fluticasone propionate [Flonase Allergy Relief] 50 mcg/actuation spray,suspension 1 spray intranasal QDAY Rx Instructions: administer into each nostril (DME) blood-glucose meter [Accu-Chek Guide Glucose Meter] Misc See Rx Instructions .Route Qty: 1 0RF Rx Instructions: Check blood sugar in the morning 4 times per week, and as needed (DME) lancets [Accu-Chek Softclix Lancets] Misc See Rx Instructions .Route Qty: 100 2RF Rx Instructions: Check blood sugar in the morning 4 times per week, and as needed (DME) Accu-Chek Guide test strips Strip See Rx Instructions .Route Qty: 100 2RF Rx Instructions: Check blood sugar in the morning 4 times per week, and as needed peg 3350-electrolytes [Golytely] 236-22.74-6.74 -5.86 gram recon soln 4,000 ml PO DIRECTED PRN (Reason: colonoscopy prep) Qty: 1 0RF Rx Instructions: 1 day prior to scopes, between 4 and 6 p.m., drink 8 oz glass every 15 minutes until half a gallon is gone. 6 hours prior to procedure, drink 8 oz glass every 15 minutes until second half gallon is gone. Follow Up/Referrals: Esha Yao [employer]PERINTENDENT [Primary Care Provider, Family Practice] Stand Alone Forms: MyHealth Info Instructions
[2025-05-07] MEDS: ONDANSETRON ODT 4 MG TAB 8 MG PO (01:51)
[2025-05-07 01:52] VITALS: BP 141/84; PULSE 112; RESP 18; O2SAT 96
[2025-05-07] MEDS: LOPERAMIDE HCL 2 MG CAPSULE 4 MG PO (02:11)
[2025-05-07 03:21] VITALS: RESP 18
== END 2025-05-07 03:38 | disposition home or self-care (01) ==
PROVIDERS: Emergency Provider Family Medicine; PCP Nurse Practitioner Family
DX: K52.9 Noninfective gastroenteritis and colitis, unspecified (principal)
CPT/HCPCS: 99283; A9270

== ENCOUNTER 2025-05-17 10:05 | Outpatient (CLI) | payer BC, SELFPAY ==
--- NOTE | 2025-05-17 11:24 | P.ANES_ITS ---
Anesthesia Charges Start Date/Time Anesthesia Start Date: 05/17/25 Anesthesia Start Time: 10:43 Stop Date/Time Anesthesia Stop Date: 05/17/25 Anesthesia Stop Time: 11:23 Coding CPT Codes CPT Codes: ANES LWR INTST NDSC NOS - 80783 ([id number]) P3 - PATIENT W/SEVERE SYS DISEASE, QK - PRODUCTIVITY ENGINEER 2-4 CNCRNT ANES PROC, QX - PSYCHOLOGIST CHIEF SVC W/ MD MED DIRECTION
--- NOTE | 2025-05-17 11:24 | W.ANESCHARGE ---
Anesthesia Charges Start Date/Time Anesthesia Start Date: 05/17/25 Anesthesia Start Time: 10:43 Stop Date/Time Anesthesia Stop Date: 05/17/25 Anesthesia Stop Time: 11:23 Coding CPT Codes CPT Codes: ANES LWR INTST NDSC NOS - 05432 ([id number]) P3 - PATIENT W/SEVERE SYS DISEASE, QK - PILLOWCASE TURNER 2-4 CNCRNT ANES PROC, QX - CHANGE COORDINATOR SVC W/ MD MED DIRECTION
--- NOTE | 2025-05-17 11:38 | P.ANES_ITS ---
Anesthesia Charges Start Date/Time Anesthesia Start Date: 05/17/25 Anesthesia Start Time: 10:43 Stop Date/Time Anesthesia Stop Date: 05/17/25 Anesthesia Stop Time: 11:23 Coding CPT Codes CPT Codes: ANES LWR INTST NDSC NOS - [id number] ([id number]) QK - ARCHITECTURAL PROJECT CAPTAIN 2-4 CNCRNT ANES PROC, QX - GRAIN BLENDER SVC W/ MED DIRECTION, P3 - PATIENT W/SEVERE SYS DISEASE
--- NOTE | 2025-05-17 11:38 | W.ANESCHARGE ---
Anesthesia Charges Start Date/Time Anesthesia Start Date: 05/17/25 Anesthesia Start Time: 10:43 Stop Date/Time Anesthesia Stop Date: 05/17/25 Anesthesia Stop Time: 11:23 Coding CPT Codes CPT Codes: ANES LWR INTST NDSC NOS - 16720 ([id number]) QK - REGIONAL RETAIL SALES MANAGER 2-4 CNCRNT ANES PROC, QX - RACK MAKER SVC W/ MED DIRECTION, P3 - PATIENT W/SEVERE SYS DISEASE
== END 2025-05-17 10:06 | disposition home or self-care (01) ==
LOC: OP CLINIC 10:07
PROVIDERS: PCP Nurse Practitioner Family; Visit Provider Surgery
DX: Z12.11 Encounter for screening for malignant neoplasm of colon (principal); D12.2 Benign neoplasm of ascending colon; K64.4 Residual hemorrhoidal skin tags; Z86.0100 Personal history of colon polyps, unspecified
CPT/HCPCS: 00811; 00812; 45380; 45385; J2704